=== PATIENT | female | born 1940 | race Caucasian/White ===

== ENCOUNTER 2016-12-26 09:33 | Emergency (ER) | payer BC ==
--- NOTE | 2016-12-26 09:56 | EDPHY ---
H & P Time Seen by Provider: 12/26/16 09:55 HPI/ROS: CHIEF COMPLAINT: Medication refill HISTORY OF PRESENT ILLNESS: This patient is a 76 year old woman, with a history of fibromyalgia and chronic pain, requesting a short course of medication refill. The patient, who lives permanently in [place], has been living in [place] for the last month and is visiting [place] for the next week. She accidentally left all her medications in [place]. She has not taken her medications for 24 hours. She is able to get her medications by Tuesday , and is requesting short course of her chronic pain medications. She takes 40mg Oxycontin BID, 10mg Ambien, and Gabapentin, 600mg in AM and 1200mg in PM. No vomiting/diarrhea/fever/anxiety. Complete ROS negative for acute sx except as mentioned in the HPI. Past Medical/Surgical History: Chronic osteoarthritis, chronic pain, insomnia, anxiety, fibromyalgia, hyperlipidemia Social History: Non-smoker, daughter at bedside, lives in [place] Smoking Status: Never smoked Physical Exam: General Appearance: Alert, no distress Eyes: Pupils equal and round ENT, Mouth: Mucous membranes moist Neck: Normal inspection Respiratory: Lungs are clear to auscultation Cardiovascular: Regular rate and rhythm Neurological: A&O, nonfocal, normal gait Skin: Warm and dry Psychiatric: Mood and affect normal Constitutional: Initial Vital Signs Temperature (C) 36.9 C 12/26/16 09:44 Heart Rate 87 12/26/16 09:44 Respiratory Rate 18 12/26/16 09:44 Blood Pressure 192/172 H 12/26/16 09:44 O2 Sat (%) 93 12/26/16 09:44 O2 Delivery Mode Nasal Cannula Allergies/Adverse Reactions: No Known Allergies Allergy (Verified 12/26/16 09:41) Home Medications: Medication Instructions Recorded ALPRAZolam [Xanax 0.25 MG (RX)] 05/12/15 DULoxetine [Cymbalta 30 MG (RX)] 05/12/15 Esomeprazole Magnesium [Nexium] 05/12/15 HYDROcodone/APAP 10/325 [[place] 05/12/15 10/325 (RX)] Ibandronate Sodium [Boniva] 05/12/15 Naproxen 05/12/15 Potassium Chloride [Klor-Con M10] 05/12/15 buPROPion [Wellbutrin 100mg (RX)] 05/12/15 Benzonatate [Tessalon Pearles] 200 mg PO Q6-8PRN PRN #30 cap 06/04/15 Guaifenesin/Codeine Phos [Codeine 5 - 10 ml PO Q4-6PRN PRN #120 06/04/15 10 mg-Guai 300 mg Liq] liquid Ambien 12/26/16 Ativan 12/26/16 Flonase Nasal [place] 12/26/16 Gabapentin [Neurontin] 600 mg PO Q12 #5 tablet 12/26/16 Neurontin 12/26/16 Oxycontin 12/26/16 SIMVASTATIN 12/26/16 Wellbutrin Sr 12/26/16 Zolpidem Tartrate [Ambien 10 mg] 10 mg PO HS PRN #2 tablet 12/26/16 oxyCODONE CR 12/26/16 oxyCODONE CR [OxyCONTIN] 40 mg PO Q12 #3 tab 12/26/16 Medical Decision Making ED Course/Re-evaluation: This patient presents requesting short course of her chronic pain medications after leaving her medications in [place], until she is able to have her medications back on Tuesday12/29/16. I have agreed to write a prescription for three days of 40mg Oxycontin BID, 10mg Ambien, and Gabapentin, 600mg in AM and 1200mg in PM. Elevated BP noted. d/w pt, likely secondary to pain. Pt will take meds, and recheck BP. If remains high, will d/w PCP or return to ED. - Data Points Medications Given: Discontinued Medications Oxycodone HCl (Oxycontin) 40 mg PO EDNOW ONE Stop: 12/26/16 10:08 Last Admin: 12/26/16 10:39 Dose: 40 mg Departure - Departure Disposition: Home, Routine, Self-Care Clinical Impression: Encounter for medication refill Condition: Good Instructions: Medicine Refill (ED) Referrals: Rehana Hamilton MD [Medical Doctor] - As per Instructions (call center supervisor primary care provider) Stand Alone Forms: Narcotic Guidelines Prescriptions: Gabapentin [Neurontin] 600 mg PO Q12 #5 tablet oxyCODONE CR [OxyCONTIN] 40 mg PO Q12 #3 tab Zolpidem Tartrate [Ambien 10 mg] 10 mg PO HS PRN #2 tablet PRN Reason: insomnia Report Scribed for: Halie Danielson Report Scribed by: Bren Carreno Date of Report: 12/26/16 Time of Report: 09:56 Physician Review and Approval Statement: 12/26/16 10:01 Portions of this note were transcribed by a pediatric medical assistant. I personally performed a history, physical exam, medical decision making, and confirmed accuracy of information the transcribed note.
[2016-12-26 10:43] VITALS: BP 153/119; PULSE 79; RESP 16; TEMP 97.7; O2SAT 94
== END 2016-12-26 10:43 | disposition home or self-care (01) ==
DX: Z76.0 Encounter for issue of repeat prescription (principal)